=== PATIENT | male | born 1955 | race Caucasian/White ===

== ENCOUNTER 2020-05-15 08:54 | Emergency (ER) | payer MEDICARE ==
[~2020-05-15] VITALS: Ht 185.4 cm; Wt 86.0 kg
[~2020-05-15 08:54] MED LIST: ACET-2061 PO; ASPI-482 PO; ASPI81TA59 PO; CEPH-264 PO; CITA10TA4 PO; HYDR-2769 PO; IPRA4AER IH; LEVO500T59 PO; LISI-334 PO; OXYC1TAB15 PO; PRAV80TA2 PO
[2020-05-15 09:45] VITALS: BP 183/94
--- NOTE | 2020-05-15 10:07 | PHYS DOC ---
Past Medical History Past Medical History: Anxiety, Depression, High Cholesterol, Hypertension Past Surgical History: Other Additional Past Surgical Histo: BILAT KNEE, SALIVARY TUMOR, neck surgery Smoking Status: Current Every Day Smoker Additional Information: 1 ppd Alcohol Use: None Drug Use: None General Adult EDM: Chief Complaint: SHOULDER INJURY HPI: HPI: Patient is a 64 year old male who presented to ER today for evaluation of right shoulder pain that been going on for 10 days. Patient denies any injury however he said he been using a framing nail GUN TO work on his house. Patient complained of pain whenever he moves his right shoulder. Patient denies any chest pain, no cough, no fever, no abdominal pain. Patient denies any trouble breathing. Patient denies any exposure to anybody who tested positive for COVID-19. Review of Systems: Review of Systems: Constitutional: Denies fever or chills. [] Eyes: Denies change in visual acuity. [] HENT: Denies nasal congestion or sore throat. [] Respiratory: Denies cough or shortness of breath. [] Cardiovascular: Denies chest pain or edema. [] GI: Denies abdominal pain, nausea, vomiting, bloody stools or diarrhea. [] : Denies dysuria. [] Musculoskeletal: Positive for right shoulder pain. Integument: Denies rash. [] Neurologic: Denies headache, focal weakness or sensory changes. [] Endocrine: Denies polyuria or polydipsia. [] Lymphatic: Denies swollen glands. [] Psychiatric: Denies depression or anxiety. [] Heart Score: Risk Factors: Risk Factors: DM, Current or recent (<one month) smoker, HTN, HLP, family history of CAD, obesity. Risk Scores: Score 0 - 3: 2.5% MACE over next 6 weeks - Discharge Home Score 4 - 6: 20.3% MACE over next 6 weeks - Admit for Clinical Observation Score 7 - 10: 72.7% MACE over next 6 weeks - Early Invasive Strategies Allergies: Allergies: Allergies Coded Allergies Type Severity Reaction Last Updated Verified No Known Drug Allergies 05/15/20 No Physical Exam: PE: Constitutional: Well developed, well nourished, no acute distress, non-toxic appearance. [] HENT: Normocephalic, atraumatic, bilateral external ears normal, oropharynx moist, no oral exudates, nose normal. [] Eyes: PERRLA, EOMI, conjunctiva normal, no discharge. [] Neck: Normal range of motion, no tenderness, supple, no stridor. [] Cardiovascular:Heart rate regular rhythm, no murmur [] Lungs & Thorax: Bilateral breath sounds clear to auscultation [] Abdomen: Bowel sounds normal, soft, no tenderness, no masses, no pulsatile masses. [] Skin: Warm, dry, no erythema, no rash. [] Back: No tenderness, no CVA tenderness. [] Extremities: right shoulder is tender with range of motion, no deformity noted, there is full range of motion. Neurologic: Alert and oriented X 3, normal motor function, normal sensory function, no focal deficits noted. [] Psychologic: Affect normal, judgement normal, mood normal. [] Current Patient Data: Vital Signs: Vital Signs Date Time Temp Pulse Resp B/P (MAP) Pulse Ox O2 Delivery O2 Flow Rate FiO2 05/15/20 09:45 98.0 58 18 183/94 (123) 100 Room Air 98.0 EKG: EKG: [] Radiology/Procedures: Radiology/Procedures: [][facility] [address] [place] [address] IMAGING REPORT Signed PATIENT: KIMBERLY MAR ACCOUNT: [id number] : 1955 LOCATION: ER AGE: 64 SEX: M EXAM STATUS: REG ER ORD. PHYSICIAN: LONNY MCDERMOTT DO REASON: RIGHT SHOULDER PAIN FOR 10 DAYS.LROM. PROCEDURE: SHOULDER 2+V RIGHT Right shoulder 3 views. HISTORY: Right shoulder pain, limited range of motion 3 views were taken of the right shoulder. There is not evidence of an acute fracture or dislocation. There is mild AC arthritis with joint space narrowing and mild spurring. IMPRESSION: 1. Mild AC joint arthritis. 2. No other acute osseous abnormality in the right shoulder. Electronically signed by: Khai Ly MD (05/15/2020 10:40 AM) [id number] DICTATED and SIGNED BY: KHAI LY MD DATE: 05/15/20 1040 Course & Med Decision Making: Course & Med Decision Making Pertinent Labs and Imaging studies reviewed. (See chart for details) [] Logan Disclaimer: Logan Disclaimer: This electronic medical record was generated, in whole or in part, using a voice recognition dictation system. Departure Departure Impression: Primary Impression: Right shoulder tendonitis Disposition: HOME, SELF-CARE Condition: IMPROVED Referrals: AMANDA HOFF MD (PCP) PLEASE FOLLOW UP WITH YOUR DOCTOR THIS WEEK FOR REEVALUATION. Patient Instructions: Shoulder Pain Scripts Naproxen Sodium (ANAPROX DS) 550 Mg Tablet 1 TAB PO BID PRN for PAIN for 10 Days, #20 TAB 0 Refills Prov: LONNY MCDERMOTT DO 05/15/20 Prednisone (PREDNISONE) 20 Mg Tablet 20 MG PO DAILY for 7 Days, #7 TAB Prov: LONNY MCDERMOTT DO 05/15/20 LONNY MCDERMOTT DO May 15, 2020 10:07
[2020-05-15] MEDS ORDERED: KETOROLAC 60 MG/2 ML VIAL. IM ONE (10:15)
[2020-05-15] MEDS ORDERED: methylPREDNISolone SOD SUCC PF 125 MG/2 ML VIAL. IM ONE (10:15)
--- NOTE | 2020-05-15 10:43 | RAD ---
Right shoulder 3 views. HISTORY: Right shoulder pain, limited range of motion 3 views were taken of the right shoulder. There is not evidence of an acute fracture or dislocation. There is mild AC arthritis with joint space narrowing and mild spurring. IMPRESSION: 1. Mild AC joint arthritis. 2. No other acute osseous abnormality in the right shoulder. Electronically signed by: Khai Ly MD (05/15/2020 10:40 AM) [id number]
[2020-05-15] MEDS ORDERED: PRED20TA PO (11:03)
[2020-05-15] MEDS ORDERED: NAPR-682 PO (11:03)
== END 2020-05-15 11:19 | disposition home or self-care (01) ==
LOC: ER 08:54
DX: M75.91 Shoulder lesion, unspecified, right shoulder (principal); I10 Essential (primary) hypertension; E78.00 Pure hypercholesterolemia, unspecified; F17.200 Nicotine dependence, unspecified, uncomplicated
CPT/HCPCS: 73030; 96372; 99284; J1885; J2930